=== PATIENT | male | born 1940 | race Caucasian/White ===

== ENCOUNTER 2016-06-12 09:04 | Outpatient (CLI) | payer MEDICARE ==
--- NOTE | 2016-06-12 18:26 | RAD ---
LEFT HIP TWO VIEWS: Date: 06-12-16 FINDINGS: No fracture or area of bony destruction was seen. There is some mild bony spurring around the hip j oint but there is no joint space narrowing. The articular surface of the femoral head is smooth. A rterial calcifications are present. The adjacent pubic ring appears intact. IMPRESSION: Minor degenerative changes. POS: [facility]
--- NOTE | 2016-06-12 19:07 | RAD ---
Two views show no fracture or area of bony destruction. There may be some mild degenerative change at the knee. IMPRESSION: No acute findings POS: [facility]
== END 2016-06-12 09:05 | disposition home or self-care (01) ==
LOC: BURRAD 09:04
PROVIDERS: ATTEND Family Medicine
DX: M25.552 Pain in left hip (principal); M16.12 Unilateral primary osteoarthritis, left hip

== ENCOUNTER 2016-06-26 10:03 | Outpatient (CLI) | payer MEDICARE ==
--- NOTE | 2016-06-26 16:27 | RAD ---
LUMBAR SPINE THREE VIEWS: Date: 06-26-16 FINDINGS: There is mild anterolisthesis of L4 on L5 that appears to be due to facet arthritis which is conside rable. There is slight disc space narrowing at this level very prominent disc space narrowing at L5 -S1. There is some irregularity of the endplates of L2 and L1 without overt acute fracture. The SI joints were unremarkable. There is a minor curvature to the spine, convex right. There is conside rable fecal material in the colon, especially the right colon. The aorta and proximal iliac arterie s are quite calcified. IMPRESSION: 1. Degenerative changes throughout the lumbar spine, most prominent at the L4 through S1 levels. 2. Arteriosclerosis. 3. Constipation. POS: [facility]
== END 2016-06-26 10:04 | disposition home or self-care (01) ==
LOC: BURRAD 10:03
PROVIDERS: ATTEND Family Medicine
DX: M54.32 Sciatica, left side (principal); M47.816 Spondylosis without myelopathy or radiculopathy, lumbar region; K59.00 Constipation, unspecified
CPT/HCPCS: 72100

== ENCOUNTER 2016-06-29 14:05 | Outpatient (CLI) | payer MEDICARE, OTHER ==
--- NOTE | 2016-06-30 09:16 | MRI ---
MRI OF THE LUMBAR SPINE PERFORMED WITHOUT CONTRAST ENHANCEMENT: Date: 06/29/16 HISTORY: Back pain. COMPARISON: 10/05/13 study. FINDINGS: There is a slight scoliotic deformity convex to the right. The vertebral bodies are normal in height . There are degenerative changes at all vertebral body levels. Mild disc narrowing is also seen at a ll levels, with the exception of L5-S1 where there is more severe degenerative disc narrowing presen t. There are interval postoperative changes of the spine since the previous 10/05/13 study. There is no significant periaortic adenopathy. The visualized portions of the kidneys are unremarkable. Ther e is a round structure seen in the left upper abdomen. This is of uncertain significance. I suspect it is related to bowel loop. It is a focally enlarged area. It is along the inferior margin of the p ancreatic tail. It would probably need to be investigated with CT to exclude some type of mass. The disc spaces findings are as follows: T12-L1: Degenerative facet changes associated with a moderate degree of canal stenosis. L1-2: The canal is mildly stenotic at this level with degenerative facet and ligamentous hypertrophic obando ge. L2-3: There are some moderate degenerative facet changes at this level. The canal is moderately stenotic. No definite significant foraminal narrowing. L3-4: There are pronounced facet hypertrophic changes at this level. These facet changes are associated wi th a moderately severe degree of canal stenosis. The canal narrowing is more involving the lateral s ides of the canal. There appears to be a left lateral disc protrusion. There is bilateral foraminal stenosis. L4-5: There are laminectomy changes at this level. Degenerative facet changes are present. There is a mild degree of foraminal narrowing bilaterally. L5-S1: Postoperative changes with laminectomy changes are seen at this level. Once again, there is mild aleisha ateral foraminal stenosis. IMPRESSION: 1. Incompletely characterized T1 slightly hypo and T2 hyperintense area which is directly inferior to the tail of the spleen, although this could very well represent bowel. I cannot definitely exclud e a mass and CT of the abdomen would be recommended for assessment. 2. Postoperative changes of the spine with multilevel areas of canal and foraminal stenosis as disc ussed above. POS: [facility]
== END 2016-06-29 14:06 | disposition home or self-care (01) ==
LOC: BURMRI 14:05
PROVIDERS: ATTEND Family Medicine
DX: M51.36 Other intervertebral disc degeneration, lumbar region (principal)
CPT/HCPCS: 72148

== ENCOUNTER 2016-07-06 10:33 | Outpatient (CLI) | payer MEDICARE, OTHER ==
--- NOTE | 2016-07-06 20:10 | CT ---
CT OF THE ABDOMEN WITH AND WITHOUT CONTRAST 07/06/[address] of the abdomen was done pre and post IV contrast. Scans were done postcontrast in both art erial and venous phases. Following this, coronal reconstructions were done. The exam is done in resp onse to a recent lumbar spine MRI that showed a possible mass or cyst near the tail of the pancreas. The structure in question is actually a large cyst attached to the mid to upper portion of the left kidney. It measures just over 6 cm in maximal diameter. It clearly arises from the kidney itself. No internal mass or septation was seen. There is no significant enhancement with contrast. The cyst ab uts the tail of the pancreas but clearly arises from the kidney. The lung bases are clear. The liver and spleen showed no acute findings. A small rest of ectopic spl enic tissue is seen near its hilum. The pancreas was unremarkable as was the gallbladder. The aorta is normal in caliber. No adrenal masses were seen. Aside from the large left renal cyst, no renal masses were seen. No hydronephrosis is present. There is some calcification of the abdominal aorta but no aneurysm. The bowel shows no wall thickening, distention, or other acute changes. No free air or free fluid wa s noted. IMPRESSION: 5.2 cm left renal cyst which is responsible for The MRI finding. Currently, it shows no worrisome ch aracteristics. POS: [facility]
== END 2016-07-06 10:34 | disposition home or self-care (01) ==
LOC: BURLAB 10:33 → BURCT 10:34
PROVIDERS: ATTEND Family Medicine
DX: Z01.812 Encounter for preprocedural laboratory examination (principal); R19.02 Left upper quadrant abdominal swelling, mass and lump; R93.8 Abnormal findings on diagnostic imaging of other specified body structures; N28.1 Cyst of kidney, acquired
CPT/HCPCS: 36415; 74160; 82565

== ENCOUNTER 2016-11-14 13:55 | Outpatient (CLI) | payer MEDICARE, OTHER ==
[2016-11-14 14:23] LABS: #Basophils 0.1 thou/uL (0.0-0.2); #Eosinphils 0.3 thou/uL (0.0-0.7); #Monocytes 0.5 thou/uL (0.11-0.59); #Neutrophils 4.4 thou/uL (1.40-6.50); %Basophils 1.2 % (0.0-1.0); %Eosinophils 3.6 % (0.0-10.0); %Monocytes 6.4 % (0.0-10.0); %Neutrophils 52.9 % (42.0-75.0); Hemoglobin 15.3 g/dL (14.0-18.0); Mean Corpuscular HGB CONC 33.3 g/dL (32.0-36.0); Mean Corpuscular Hemoglobin 31.9 pg (27.0-31.0); Mean Corpuscular Volume 95.8 fl (80.0-94.0); Mean Platelet Volume 7.7 fL (7.4-10.4); Platelet Count 218 thou/uL (130-400); RBC Distribution Width 12.3 % (11.5-14.5); Red Blood Cell (RBC) Count 4.81 mill/uL (4.70-6.10); White Blood Cell (WBC) Count 8.4 thou/uL (4.8-10.8)
[2016-11-14 14:38] LABS: ALT (SGPT) 10 U/L (8-55); AST (SGOT) 11 U/L (5-34); Alkaline Phosphatase 63 U/L (40-150); Anion Gap 15 mmol/L (10-20); BUN (Urea Nitrogen) 16 mg/dL (8.4-25.7); Bilirubin, Total 0.8 mg/dL (0.2-1.2); Calc. Creatinine Clearance 0 mL/min (70-130); Calcium 9.1 mg/dL (7.8-10.44); Carbon Dioxide 27 mmol/L (23-31); Chloride 105 mmol/L (98-107); Estimated GFR-MDRD 72; Globulin 2.5 g/dL (2.4-3.5); Glucose 115 mg/dL (83-110); Potassium 3.9 mmol/L (3.5-5.1); Protein, Total 6.5 g/dL (5.8-8.1); Sodium 143 mmol/L (136-145)
== END 2016-11-14 13:56 | disposition home or self-care (01) ==
LOC: HPCALD 13:55
PROVIDERS: ATTEND Family Medicine
DX: Z01.818 Encounter for other preprocedural examination (principal)
CPT/HCPCS: 36415; 80053; 85025

== ENCOUNTER 2016-11-14 14:02 | Outpatient (CLI) | payer MEDICARE, OTHER ==
--- NOTE | 2016-11-14 16:55 | RAD ---
CHEST TWO VIEWS 11/14/16 Comparison is made with a 05/21/14 study. The heart is normal in size. The lungs are clear. No acute infiltrate or effusion was appreciated. A little streaking near the cardiac apex is chronic and is probably scarring. The trachea is midline. Calcific changes are seen in the aortic arch. IMPRESSION: No acute thoracic finding. POS: [facility]
== END 2016-11-14 14:03 | disposition home or self-care (01) ==
LOC: BUREKG 14:02
PROVIDERS: ATTEND Family Medicine
DX: Z01.818 Encounter for other preprocedural examination (principal); Z72.0 Tobacco use
CPT/HCPCS: 36415; 71020; 80053; 85025; 93005; 93010

== ENCOUNTER 2018-01-20 17:16 | Emergency (ER) | payer MEDICARE ==
[2018-01-20] MEDS ORDERED: Morphine 4 MG/ML Carpuject ONE (17:24)
[2018-01-20] MEDS ORDERED: Ondansetron HCl/PF 4 MG/2 ML Vial ONE (17:24)
[2018-01-20 17:35] LABS: #Basophils 0.1 thou/uL (0.0-0.2); #Eosinphils 0.3 thou/uL (0.0-0.7); #Lymphocytes 2.1 thou/uL (1.20-3.40); #Monocytes 0.6 thou/uL (0.11-0.59); #Neutrophils 6.8 thou/uL (1.40-6.50); %Basophils 0.9 % (0.0-1.0); %Eosinophils 3.3 % (0.0-10.0); %Lymphocytes 21.2 % (21.0-51.0); %Monocytes 5.7 % (0.0-10.0); %Neutrophils 68.9 % (42.0-75.0); Hemoglobin 15.3 g/dL (14.0-18.0); Mean Corpuscular HGB CONC 32.5 g/dL (32.0-36.0); Mean Corpuscular Hemoglobin 30.4 pg (27.0-31.0); Mean Corpuscular Volume 93.8 fL (78.0-98.0); Mean Platelet Volume 8.4 fL (7.4-10.4); Platelet Count 223 thou/uL (130-400); RBC Distribution Width 13.1 % (11.5-14.5); Red Blood Cell (RBC) Count 5.02 mill/uL (4.70-6.10); White Blood Cell (WBC) Count 9.8 thou/uL (4.8-10.8)
[2018-01-20] MEDS ORDERED: Pantoprazole 40 MG VIAL ONE (17:43)
[2018-01-20 17:53] LABS: ALT (SGPT) 12 U/L (8-55); AST (SGOT) 14 U/L (5-34); Albumin 4.4 g/dL (3.4-4.8); Alkaline Phosphatase 82 U/L (40-150); Anion Gap 15 mmol/L (10-20); BUN (Urea Nitrogen) 18 mg/dL (8.4-25.7); Bilirubin, Total Less than 0.2 mg/dL (0.2-1.2); Calc. Creatinine Clearance 0 mL/min (70-130); Calcium 9.9 mg/dL (7.8-10.44); Carbon Dioxide 24 mmol/L (23-31); Chloride 103 mmol/L (98-107); Estimated GFR-MDRD 61; Globulin 3.1 g/dL (2.4-3.5); Glucose 178 mg/dL (83-110); Potassium 3.9 mmol/L (3.5-5.1); Protein, Total 7.5 g/dL (5.8-8.1); Sodium 138 mmol/L (136-145)
[2018-01-20 17:55] LABS: CKMB 2.2 ng/mL (0-6.6); Troponin I Less than 0.010 ng/mL (< 0.028)
[2018-01-20] MEDS ORDERED: diphenhydrAMINE 50 MG/ML VIAL ONE (18:06)
[2018-01-20] MEDS ORDERED: Enoxaparin Sodium 100 MG/ML SYRINGE ONE (18:48)
[2018-01-20 18:52] LABS: Clarity CLEAR (Clear)
[2018-01-20 18:53] LABS: Bilirubin Negative (Negative); Blood, Urine Negative (Negative); Glucose, Urine (Dipstick) Negative (Negative); Leukocyte Negative (Negative); Nitrite Negative (Negative); Protein, Urine (Dipstick) Negative (Neg-Trace); pH, Urine 6.5 (5.0-9.0)
--- NOTE | 2018-01-20 18:53 | RAD ---
PORTABLE CHEST: HISTORY: Chest pain. FINDINGS: Heart size is within normal limits. There are atherosclerotic changes of the aorta. The lungs are c lear of infiltrates. IMPRESSION: No active intrathoracic disease. POS: [facility]
--- NOTE | 2018-01-20 19:01 | CT ---
CT ANGIO CHEST PERFORMED WITH INTRAVENOUS CONTRAST ENHANCEMENT WITH 3D RECONSTRUCTIONS: HISTORY: Chest pain. FINDINGS: The lungs show some infiltrative type change in the right lower lobe, laterally. Changes abut the ma lola fissure. The left lung is clear. There are no pulmonary nodules. There is no significant mediastinal or hilar adenopathy seen. The abdominal aorta is normal in caliber. There is good pulmonary arterial opacification obtained. There is evidence of a right lower lobe pul monary embolus. This could explain the lung changes in this area being related to the embolus rather than a pneumonic type process. The visualized liver parenchyma shows no focal findings. IMPRESSION: Right lower lobe pulmonary embolus. Findings discussed with Dr. Schumacher. CODE CR POS: [facility]
== END 2018-01-20 19:35 | disposition home or self-care (01) ==
LOC: BURERS 17:16
DX: I26.99 Other pulmonary embolism without acute cor pulmonale (principal); K21.9 Gastro-esophageal reflux disease without esophagitis; I10 Essential (primary) hypertension; F17.210 Nicotine dependence, cigarettes, uncomplicated; Z79.899 Other long term (current) drug therapy
CPT/HCPCS: 71045; 71275; 80053; 81003; 82553; 83880; 84484; 85025; 85379; 93005; 96372; 96374; 96375; C9113; J1200; J1650; J2270; J2405

== ENCOUNTER 2019-04-07 07:54 | Outpatient (CLI) | payer MEDICARE ==
[2019-04-07 08:32] LABS: PTT 33.9 SEC (22.9-36.1); Prothrombin Time 13.5 SEC (12.0-14.7)
[2019-04-07 12:02] LABS: #Basophils 0.1 thou/uL (0.0-0.2); #Eosinphils 0.1 thou/uL (0.0-0.7); #Lymphocytes 2.5 thou/uL (1.20-3.40); #Monocytes 0.5 thou/uL (0.11-0.59); #Neutrophils 2.6 thou/uL (1.40-6.50); %Basophils 2.2 % (0.0-1.0); %Eosinophils 2.5 % (0.0-10.0); %Lymphocytes 42.5 % (21.0-51.0); %Monocytes 8.2 % (0.0-10.0); %Neutrophils 44.6 % (42.0-75.0); Hemoglobin 15.6 g/dL (14.0-18.0); Mean Corpuscular HGB CONC 33.6 g/dL (32.0-36.0); Mean Corpuscular Hemoglobin 32.1 pg (27.0-31.0); Mean Corpuscular Volume 95.5 fL (78.0-98.0); Mean Platelet Volume 7.9 fL (7.4-10.4); Platelet Count 219 thou/uL (130-400); RBC Distribution Width 12.6 % (11.5-14.5); Red Blood Cell (RBC) Count 4.85 mill/uL (4.70-6.10); White Blood Cell (WBC) Count 5.8 thou/uL (4.8-10.8)
[2019-04-07 13:23] LABS: ALT (SGPT) 9 U/L (8-55); AST (SGOT) 11 U/L (5-34); Albumin 4.2 g/dL (3.4-4.8); Alkaline Phosphatase 62 U/L (40-110); Anion Gap 12 mmol/L (10-20); BUN (Urea Nitrogen) 17 mg/dL (8.4-25.7); Bilirubin, Total 1.1 mg/dL (0.2-1.2); Calc. Creatinine Clearance 0 mL/min (70-130); Calcium 9.5 mg/dL (7.8-10.44); Carbon Dioxide 27 mmol/L (23-31); Chloride 104 mmol/L (98-107); Estimated GFR-MDRD 71; Globulin 2.4 g/dL (2.4-3.5); Glucose 104 mg/dL (83-110); Potassium 3.8 mmol/L (3.5-5.1); Protein, Total 6.6 g/dL (5.8-8.1); Sodium 139 mmol/L (136-145)
== END 2019-04-07 07:55 | disposition home or self-care (01) ==
LOC: BURRAD 07:54
PROVIDERS: ATTEND Family Medicine
DX: Z01.818 Encounter for other preprocedural examination (principal); Z86.718 Personal history of other venous thrombosis and embolism
CPT/HCPCS: 36415; 80053; 85025; 85610; 85730; 93005; 93010

== ENCOUNTER 2019-07-07 08:26 | Outpatient (CLI) | payer MEDICARE ==
--- NOTE | 2019-07-07 09:54 | CT ---
CT NECK SOFT TISSUES WITH CONTRAST: DATE: 07/07/2019. HISTORY: A 78-year-old male with cervicalgia. FINDINGS: The sagittal reconstruction images are not optimized for evaluation of osseous detail. There is ACDF hardware at C5-6. Multilevel high-grade bilateral facet DJD. Diffuse enlargement of lingual tonsil, but not of the adenoids or palatine tonsils. No mass or abscess identified involving the submandibular, parotid, retropharyngeal, parapharyngeal, perivertebral, posterior cervical, or lithostripper spaces. No significant cervical lymphadenopathy by size criteria. Sclerosis and bony hypertrophy of left mandibular condyle with expansion. Similar fi nding involving left maxilla and left mandibular body. No major pathology identified involving laryn x. No large thyroid nodule identified. IMPRESSION: 1. Sclerotic expansile changes involving left mandibular condyle, left mandibular body, and left max illa. Etiology uncertain, but possibilities include Paget's disease and osteoblastic metastases. 2. Cervical spondylosis consisting of multilevel high-grade facet osteoarthrosis. 3. hyperplasia of lingual tonsil. POS: [facility]
[2019-07-07] MEDS ORDERED: Iopamidol 370 76% 100 ML VIAL ONE (09:56)
== END 2019-07-07 08:27 | disposition home or self-care (01) ==
LOC: BURCT 08:26
PROVIDERS: ATTEND Family Medicine
DX: M54.2 Cervicalgia (principal); M47.812 Spondylosis without myelopathy or radiculopathy, cervical region; J35.1 Hypertrophy of tonsils; M27.8 Other specified diseases of jaws; Z98.890 Other specified postprocedural states
CPT/HCPCS: 70491; Q9967

== ENCOUNTER 2020-01-15 11:36 | Outpatient (CLI) | payer MEDICARE ==
--- NOTE | 2020-01-15 19:36 | RAD ---
LEFT RIBS THREE VIEWS: 01/15/20 No fracture or area of bony destruction was seen. All ribs appeared intact. The adjacent left lung is clear. There are no effusions. Dense calcification is seen in the aortic ar ch. IMPRESSION: No significant findings. POS: [facility]
== END 2020-01-15 11:37 | disposition home or self-care (01) ==
LOC: BURRAD 11:36
PROVIDERS: ATTEND Family Medicine
DX: R07.81 Pleurodynia (principal)

== ENCOUNTER 2023-11-30 14:47 | Emergency (ER) | payer MEDICARE ==
[2023-11-30] MEDS ORDERED: Acetaminophen 500 MG TAB ONE (15:35)
== END 2023-11-30 16:14 | disposition home or self-care (01) ==
LOC: BURERS 14:47
DX: S16.1XXA Strain of muscle, fascia and tendon at neck level, initial encounter (principal); I10 Essential (primary) hypertension; F17.210 Nicotine dependence, cigarettes, uncomplicated; W19.XXXA Unspecified fall, initial encounter
CPT/HCPCS: 70450; 72125